=== PATIENT | female | born 1945 | race Caucasian/White ===

== ENCOUNTER 2019-06-21 15:53 | Inpatient (IN) | payer MEDICARE, OTHER ==
[~2019-06-21] VITALS: Ht 165.1 cm; Wt 61.2 kg
[2019-06-21 16:23] LABS: BASOPHILS % (AUTO) 0.4 % (0.0-2.0); EOSINOPHILS % (AUTO) 0.8 % (0.0-6.0); HEMATOCRIT 40 % (33-45); LYMPHOCYTES # (AUTO) 0.6 /CMM (0.8-4.8); LYMPHOCYTES % (AUTO) 6.7 % (20.0-44.0); MEAN CORPUSCULAR HGB CONC 33 g/dl (31.0-36.0); MEAN CORPUSCULAR VOLUME 86 fL (82-100); MONOCYTES # (AUTO) 1.1 /CMM (0.1-1.30); MONOCYTES % (AUTO) 11.5 % (2.0-12.0); NEUTROPHILS # (AUTO) 7.4 /CMM (1.8-8.9); NEUTROPHILS % (AUTO) 80.6 % (43.0-81.0); PLATELET COUNT (AUTO) 246 /CMM (150-450); RED BLOOD CELL COUNT(AUTO) 4.67 MIL/uL (4.0-5.2); WHITE BLOOD COUNT (AUTO) 9.2 K/uL (4.3-11.0)
--- NOTE | 2019-06-21 16:24 | NUR ---
DR MATUTE AT BEDSIDE
[2019-06-21] MEDS ORDERED: ONDANSETRON HCL/PF 4 MG/2 ML VIAL ONE ×2 (16:28→19:35)
[2019-06-21] MEDS ORDERED: ONDANSETRON HCL/PF 4 MG/2 ML VIAL IVP ONE (16:30)
[2019-06-21] MEDS ORDERED: IV NS 0.9% 500 ML BAG IV ONE (16:30)
[2019-06-21 16:32] LABS: CALCIUM, SERUM 9.1 mg/dL (8.5-10.1); CARBON DIOXIDE 24 mmol/L (21-32); CHLORIDE 103 mmol/L (98-107); CREATININE 1.1 mg/dL (0.6-1.3); GLUCOSE 111 mg/dL (74-106); POTASSIUM 4.2 mmol/L (3.5-5.1); SODIUM SERUM 135 mmol/L (136-145); UREA NITROGEN, BLOOD 33 mg/dL (7-18)
[2019-06-21 16:39] LABS: ALANINE AMINOTRANSFERASE 17 U/L (12-78); ALBUMIN 3.5 g/dL (3.4-5.0); ALKALINE PHOSPHATASE 66 U/L (46-116); ASPARTATE AMINOTRANSFERASE 15 U/L (15-37); BILIRUBIN,DIRECT 0.1 mg/dL (0.0-0.2); BILIRUBIN,TOTAL 0.5 mg/dL (0.2-1.0); LIPASE 128 U/L (73-393); TOTAL PROTEIN, SERUM 7.8 g/dL (6.4-8.2)
--- NOTE | 2019-06-21 16:46 | NUR ---
JOSE FROM SNF FOR NAUSEA, VOMITING AND DIARRHEA. TO ER BED 4, HOOKED TO MONITOR, CHANGED TO HOSP [facility], AWAITING MD KENNEDY.
[2019-06-21] MEDS ORDERED: TEMA15CA PO (16:54)
[2019-06-21] MEDS ORDERED: LORA1TAB PO (16:54)
[2019-06-21] MEDS ORDERED: ALBU8.5H8 IH (16:54)
[2019-06-21] MEDS ORDERED: OLAN10TA3 PO (16:54)
[2019-06-21] MEDS ORDERED: MELA3TAB63 PO (16:54)
[2019-06-21] MEDS ORDERED: HALO5TAB PO (16:54)
[2019-06-21] MEDS ORDERED: IBUP-1955 PO (16:54)
[2019-06-21] MEDS ORDERED: FERR325T23 PO (16:54)
[2019-06-21] MEDS ORDERED: PANT40TA2 PO (16:54)
[2019-06-21] MEDS ORDERED: MAGN400O6 PO (16:54)
[2019-06-21] MEDS ORDERED: CALC-7 PO (16:54)
[2019-06-21] MEDS ORDERED: MIRT7.5T10 PO (16:54)
[2019-06-21] MEDS ORDERED: IOHEXOL-300 100 ML VIAL IV ONE (17:08)
[2019-06-21] MEDS ORDERED: IV NS 0.9% 250 ML IV ONE (17:08)
[2019-06-21] MEDS ORDERED: CT SWABBABLE VALVE TRANS SET 1 EA INFUS.SET MC ONE (17:08)
--- NOTE | 2019-06-21 18:16 | NUR ---
URINE SAMPLE COLLECTED VIA STRAIGHT CATHETER. SENT SAMPLE TO LAB
[2019-06-21 18:29] LABS: APPEARANCE,URINE Clear (CLEAR); BILIRUBIN,URINE Negative (NEGATIVE); BLOOD, URINE Negative Ery/uL (NEGATIVE); COLOR,URINE Yellow (YELLOW); KETONES,URINE Trace (NEGATIVE); LEUKOCYTE ESTERASE ,URINE Trace (NEGATIVE); NITRITE, URINE Positive (NEGATIVE); PH,URINE 5.5 (5.0-8.0); PROTEIN,URINE Negative (NEGATIVE); UGLUCOSE Negative (NEGATIVE); UROBILINOGEN,URINE 0.2 EU/dL (0.2)
[2019-06-21 18:42] LABS: SQUAMOUS EPITHELIAL CELL,UR Many /HPF (None Seen)
[2019-06-21 18:43] LABS: BACTERIA,URINE Many /HPF (None Seen); RBC,URINE 0-2 /HPF (0-2)
[2019-06-21] MEDS ORDERED: IV NS 0.9% 1,000 ML BAG IV ONE (19:00)
[2019-06-21] MEDS ORDERED: HYDROMORPHONE INJ 0.5 MG/0.5 ML SYRINGE IV ONE (19:00)
[2019-06-21] MEDS ORDERED: HYDROMORPHONE 1 MG/1 ML DISP.SYRIN ONE (19:27)
--- NOTE | 2019-06-21 19:33 | NUR ---
PATIENT NOTED W VOMITING. MADE MD AWARE. RECEIVED VERBAL ORDER OF ZOFRAN 4MG IV. CARRIED OUT.
[2019-06-21] MEDS ORDERED: ONDANSETRON HCL/PF - ER 4 MG/2 ML VIAL IV ONE (20:00)
--- NOTE | 2019-06-21 20:15 | NUR ---
waiting for rn sup to assign bed
[2019-06-21] MEDS ORDERED: IV D5/0.45 NACL 1,000 ML IV ONE (20:30)
[2019-06-21] MEDS ORDERED: ONDANSETRON HCL/PF 4 MG/2 ML VIAL IVP PRN (21:00)
[2019-06-21] MEDS ORDERED: MORPHINE SULFATE INJ 2 MG/ML DISP.SYRIN IV PRN (21:00)
[2019-06-21] MEDS ORDERED: TEMAZEPAM 15 MG CAPSULE PO PRN (21:00)
[2019-06-21] MEDS ORDERED: ALBUTEROL FS 2.5 MG/0.5 ML VIAL.NEB NEB PRN (21:00)
--- NOTE | 2019-06-21 21:42 | NUR ---
REPORT GIVEN TO SHREYA ZAVALA.
[2019-06-21 21:50] VITALS: BP 114/65
[2019-06-21] MEDS: HALOPERIDOL 5 MG TABLET PO SCH (21:50)
--- NOTE | 2019-06-21 21:50 | NUR ---
MS RN NOTE PT ARRIVED TO FLOOR VIA GURNEY ACCOMPANIED BY ER STAFF. RECEIVED PT IN STABLE CONDITION. A/O X1. PT CURRENTLY DROWSY, AND SLEEPY, NEEDED TO REPEAT QUESTIONS BEFORE SHE CAN ANSWER. NO SIGNS OF SOB OR DISTRESS, NO INDICATION OF PAIN. NO N/V NOTED. IV IN L AC #[address] S/L. ALL CURRENT NEEDS ATTENDED TO. BED LOW, LOCKED, UPPER RAILS UP, AND CALL LIGHT WITHIN REACH. PT BODY ASSESSED, AND BELONGINGS ACCOUNTED AND SIGNED FOR. WILL CONT. TO MONITOR.
[2019-06-21] MEDS: MIRTAZAPINE 15 MG TABLET PO SCH (22:00)
[2019-06-21] MEDS ORDERED: LEVOFLOXACIN 500 MG /D5W 100ML 500 MG in PREMIX 1 EA IV ONE (22:00)
[2019-06-21] MEDS: IV D5/0.45 NACL 1,000 ML IV PRN (22:22)
[2019-06-21] MEDS ORDERED: LEVOFLOXACIN 250 MG /D5W 50 ML 0 ML IV ONE (22:24)
[2019-06-21] MEDS ORDERED: LEVOFLOXACIN 500 MG /D5W 100ML 100 ML IV ONE (22:28)
[2019-06-22 05:45] VITALS: BP 114/65
--- NOTE | 2019-06-22 06:24 | NUR ---
MS RN NOTE PT REMAINS IN STABLE CONDITION. A/O X1. PT CURRENTLY ASLEEP. NO SIGNS OF SOB OR DISTRESS, NO INDICATION OF PAIN. NO N/V NOTED. IV IN L AC #[address] WITH IVF INFUSING, TOLERATING WELL. ALL CURRENT NEEDS ATTENDED TO. BED LOW, LOCKED, UPPER RAILS UP, AND CALL LIGHT WITHIN REACH AND ENDORSE TO NEXT SHIFT FOR RAJAT.
[2019-06-22 07:01] LABS: BASOPHILS % (AUTO) 0.1 % (0.0-2.0); EOSINOPHILS % (AUTO) 1.6 % (0.0-6.0); HEMATOCRIT 33 % (33-45); HEMOGLOBIN 10.8 g/dL (11.5-14.8); LYMPHOCYTES # (AUTO) 1.4 /CMM (0.8-4.8); LYMPHOCYTES % (AUTO) 16.1 % (20.0-44.0); MEAN CORPUSCULAR HGB CONC 32 g/dl (31.0-36.0); MEAN CORPUSCULAR VOLUME 86 fL (82-100); MONOCYTES # (AUTO) 0.9 /CMM (0.1-1.30); MONOCYTES % (AUTO) 10.3 % (2.0-12.0); NEUTROPHILS # (AUTO) 6.3 /CMM (1.8-8.9); NEUTROPHILS % (AUTO) 71.9 % (43.0-81.0); PLATELET COUNT (AUTO) 209 /CMM (150-450); RED BLOOD CELL COUNT(AUTO) 3.86 MIL/uL (4.0-5.2); WHITE BLOOD COUNT (AUTO) 8.7 K/uL (4.3-11.0)
[2019-06-22 07:18] LABS: ALBUMIN 2.5 g/dL (3.4-5.0); BILIRUBIN,TOTAL 0.5 mg/dL (0.2-1.0); CALCIUM, SERUM 7.8 mg/dL (8.5-10.1); MAGNESIUM 1.6 mg/dL (1.8-2.4); PHOSPHORUS 2.4 mg/dL (2.5-4.9); POTASSIUM 4.5 mmol/L (3.5-5.1); TOTAL PROTEIN, SERUM 6.1 g/dL (6.4-8.2)
--- NOTE | 2019-06-22 07:20 | NUR ---
RN OPENING NOTE PT WAS RECEIVED IN BED AT LOWEST AND LOCKED POSITION WITH SIDE RAILS UP X2, A/O X1-2 BREATHING EVEN AND UNLABORED ON RA, ON BEDREST SKIN INTACT, IV IS PATENT AND INTACT, NOTED THAT PT IS NPO AWAITING GI CONSULT, SAFETY PRECAUTIONS IN PLACE, CALL LIGHT IN REACH, WILL MONITOR ACCORDINGLY
[2019-06-22 07:24] LABS: THYROID STIMULATING HORMONE 1.323 uIU/mL (0.358-3.74)
[2019-06-22 08:07] VITALS: BP 122/74
[2019-06-22] MEDS: HALOPERIDOL 5 MG TABLET PO SCH ×4 (08:15→21:00)
[2019-06-22] MEDS: OLANZAPINE 10 MG TABLET PO SCH ×3 (08:16→16:10)
--- NOTE | 2019-06-22 08:25 | NUR ---
RN NOTE PT PULLED OUT IV AT THIS TIME AND AT RISK FOR FALLS DUE HER TRYING TO GET OUT OF BED, SLEEVE IRONER JINA MADE AWARE REQUESTED SITTER AT THIS TIME. WILL MONITOR ACCORDINGLY
--- NOTE | 2019-06-22 09:23 | NUR ---
RN NOTE NEW IV INSERTED IN RIGHT HAND GAUGE 22, SITTER AT BEDSIDE, WILL CONTINUE TO MONITOR
[2019-06-22] MEDS: Magnesium 1GM/D5W 100ML PREMIX 100 ML IV SCH ×2 (11:21→12:14)
[2019-06-22] MEDS: HEPARIN SODIUM, PORCINE 5000 UNITS/1 ML VIAL SQ SCH ×2 (12:15→23:42)
[2019-06-22] MEDS: LORAZEPAM INJ 2 MG/ML VIAL IV PRN (12:19)
--- NOTE | 2019-06-22 15:00 | NUR ---
RN NOTE PHARMACY INFORMED THAT PT IS NPO, THEY WILL CHANGE DOSE FROM PO TO IV
[2019-06-22] MEDS ORDERED: K PHOS NEUTRAL 250 MG TABLET PO ONE (15:30)
[2019-06-22 16:00] VITALS: BP 116/64
[2019-06-22] MEDS ORDERED: Sodium Phosphate 15 MMOL in IV D5W 250 ML IV ONE (16:00)
[2019-06-22] MEDS: IV D5/0.45 NACL 1,000 ML IV PRN (16:36)
--- NOTE | 2019-06-22 16:45 | NUR ---
RN NOTE PHARMACY CALLED REGARDING IV PHOSPHORUS, INFORMED THAT IT IS ON ITS WAY, WILL AWAIT FOR MED TO BE BROUGHT UP
[2019-06-22] MEDS: PANTOPRAZOLE 40 MG VIAL IV SCH (17:12)
--- NOTE | 2019-06-22 17:26 | NUR ---
RN NOTE PHOSPHORUS BROUGHT UP AT THIS TIME, WILL ADMIN
[2019-06-22 17:40] LABS: IRON, SERUM 40 ug/dl (50-175); TOTAL IRON BINDING CAPACITY 243 ug/dl (250-450)
[2019-06-22 17:56] LABS: FERRITIN 94 ng/mL (8-388)
--- NOTE | 2019-06-22 18:22 | NUR ---
RN CLOSING NOTE PT IN BED AT LOWEST AND LOCKED POSITION WITH SIDE RAILS UP X2, A/O X1-2 BREATHING EVEN AND UNLABORED ON RA, IV IS PATENT AND INTACT, SITTER AT BEDSIDE, CURRENTLY NPO, SAFETY PRECAUTIONS IN PLACE, CALL LIGHT IN REACH, ALL NEEDS ATTENDED TO THROUGHOUT SHIFT, WILL ENDORSE TO NIGHT RN FOR RAJAT.
--- NOTE | 2019-06-22 19:53 | NUR ---
RN NOTES RECEIVED PATIENT AWAKE IN BED CALM RESTING COMFORTABLY, IV ACCESS INTACT AND PATENT, SITTER AT BEDSIDE, SAFETY MEASURES INPLACE, ASPIRATION PRECAUTION MAINTAINED, CALL LIGHT WITHIN EASY REACH, NO SIGNS OF DISTRESS, WILL CONTINUE TO MONITOR ACCORDINGLY.
[2019-06-22] MEDS: MIRTAZAPINE 15 MG TABLET PO SCH (22:00)
[2019-06-22] MEDS: LEVOFLOXACIN 250 MG /D5W 50 ML 250 MG in PREMIX 1 EA IV SCH (22:40)
--- NOTE | 2019-06-23 00:49 | NUR ---
RN NOTES NEW IV INSERTED IN LEFT FOREARM GAUGE 22, SITTER AT BEDSIDE, WILL CONTINUE TO MONITOR ACCORDINGLY.
[2019-06-23] MEDS: LORAZEPAM INJ 2 MG/ML VIAL IV PRN (01:25)
--- NOTE | 2019-06-23 01:25 | NUR ---
RN NOTES ATIVAN 0.5 MG IV GIVEN PER MD ORDER FOR AGITATION, AND RESTLESSNESS, SITTER AT BEDSIDE. SAFETY MEASURES INPLACE.
[2019-06-23 06:34] LABS: BASOPHILS % (AUTO) 0.2 % (0.0-2.0); HEMATOCRIT 34 % (33-45); HEMOGLOBIN 11.2 g/dL (11.5-14.8); LYMPHOCYTES # (AUTO) 1.5 /CMM (0.8-4.8); LYMPHOCYTES % (AUTO) 19.3 % (20.0-44.0); MEAN CORPUSCULAR HGB CONC 33 g/dl (31.0-36.0); MEAN CORPUSCULAR VOLUME 86 fL (82-100); MONOCYTES # (AUTO) 0.6 /CMM (0.1-1.30); MONOCYTES % (AUTO) 8.4 % (2.0-12.0); NEUTROPHILS # (AUTO) 5.3 /CMM (1.8-8.9); NEUTROPHILS % (AUTO) 69.1 % (43.0-81.0); PLATELET COUNT (AUTO) 219 /CMM (150-450); WHITE BLOOD COUNT (AUTO) 7.6 K/uL (4.3-11.0)
[2019-06-23 07:05] LABS: CALCIUM, SERUM 8.6 mg/dL (8.5-10.1); CREATININE 0.9 mg/dL (0.6-1.3); MAGNESIUM 2.2 mg/dL (1.8-2.4); PHOSPHORUS 3.1 mg/dL (2.5-4.9); POTASSIUM 3.8 mmol/L (3.5-5.1)
--- NOTE | 2019-06-23 07:08 | NUR ---
RN NOTES ALL NEEDS ATTENDED AND MET. BILATERAL SOFT WRIST RESTRAINTS ON, MONITORED FOR ADEQUATE CIRCULATION AND SKIN INTEGRITY, REPOSITIONED FOR COMFORT, SITTER AT BEDSIDE, SAFETY MEASURES IN PLACE,ENDORSED TO AM NURSE FOR CONTINUITY OF CARE.
[2019-06-23 08:00] VITALS: BP 152/78
[2019-06-23] MEDS: OLANZAPINE 10 MG TABLET PO SCH ×3 (09:00→16:14)
[2019-06-23] MEDS: HALOPERIDOL 5 MG TABLET PO SCH ×4 (09:00→20:51)
[2019-06-23] MEDS: HEPARIN SODIUM, PORCINE 5000 UNITS/1 ML VIAL SQ SCH ×2 (09:16→20:52)
[2019-06-23] MEDS ORDERED: DIATR MEGLU/DIATRIZOATE SODIUM 120 ML BOTTLE (GASTROGRAPHIN) ONE (09:36)
[2019-06-23] MEDS ORDERED: BARIUM SULFATE 98% 135 ML SUSP.RECON PO ONE (10:03)
--- NOTE | 2019-06-23 12:00 | NUR ---
RECEIVED ORDER FROM PRITI LUCIO , EGD TOMORROW.
--- NOTE | 2019-06-23 12:20 | NUR ---
PATIENT TOLERATED PUREE DIET WELL, NO SWALLOW PROBLEMS WERE NOTED.
[2019-06-23 16:00] VITALS: BP 140/84
--- NOTE | 2019-06-23 16:01 | NUR ---
SPOKE WITH PATIENT'S CONSERVATIVE MICHAEL PLUNKETT TO GET A CONSENT FOR EGD. CONSERVATOR CANNOT SIGH A CONSENT FOR INVASIVE PROCEDURES. SHE WILL SEND A FORM THAT HAS TO BE SIGHED BY MEDICAL DOCTOR AND EXTRUDER OPERATOR MULTIPLE AND THAN SEND BACK TO HER
--- NOTE | 2019-06-23 16:11 | NUR ---
RECEIVED THE FORM( PLACED IN THE CHART). CHARGE NURSE INFORMED. WILL INFORM
[2019-06-23] MEDS: PANTOPRAZOLE 40 MG VIAL IV SCH (16:14)
--- NOTE | 2019-06-23 17:00 | NUR ---
PER ISAURO EDUCATION ADMINISTRATOR NO EGD TOMORROW.
--- NOTE | 2019-06-23 18:58 | NUR ---
PATIENT IN BED.A/OX1, REMAINS CONFUSED. VS ARE STABLE AND PATIENT ON ROOM AIR. BILATERAL SOFT WRIST RESTRAINTS ON, MONITORED FOR ADEQUATE CIRCULATION AND SKIN INTEGRITY, SITTER AT BEDSIDE, SAFETY MEASURES IN PLACE,ENDORSED TO NEXT SHIFT NURSE FOR CONTINUITY OF CARE.
--- NOTE | 2019-06-23 19:20 | NUR ---
rn notes/assessment: pt in bed, awake, a/o x1. sitter at bed side. received with bilateral soft wrist restraint. pt trying to hit staff and throw food and liquids. iv noted on left fa g 22 patent and flushing well, infusing with d51/2 ns at 80ml/hr. no s/s of iv infiltration noted. restraint protocol followed. pt able to move and wiggle arm and hands. with good capillary refill noted. pedal pulses intact. no s/s of impediment in circulation noted. ble offloaded on pillows. safety precautions for fall engaged, call light in reach, will continue monitoring pt.
[2019-06-23 20:00] VITALS: BP 156/78
[2019-06-23 20:03] VITALS: BP 156/56
[2019-06-23] MEDS: LEVOFLOXACIN 250 MG /D5W 50 ML 250 MG in PREMIX 1 EA IV SCH (21:02)
[2019-06-23] MEDS: IV D5/0.45 NACL 1,000 ML IV PRN (22:21)
[2019-06-23] MEDS: MIRTAZAPINE 15 MG TABLET PO SCH (22:21)
[2019-06-23 22:23] VITALS: BP 112/53
--- NOTE | 2019-06-24 06:12 | NUR ---
RN CLOSING NOTES: PT REMAINS ON ASPIRATION PRECAUTIONS. BILATERAL SOFT WRIST RESTRAINT IN PLACED, BILATERAL RADIAL PULSES INTACT, WITH GOOD CAPILLARY REFILL NOTED, PT ABLE TO MOVE AND WIGGLE ARMS. NO S/S OF IMPEDIMENT IN CIRCULATION NOTED. BLE OFFLOADED ON PILLOWS. SAFETY PRECAUTIONS FOR FALL REMAINS ENGAGED, CALL LIGHT IN REACH, ENDORSE TO HUGH RN FOR CONTINUITY OF CARE.
[2019-06-24 07:44] LABS: BASOPHILS % (AUTO) 0.3 % (0.0-2.0); EOSINOPHILS % (AUTO) 3.5 % (0.0-6.0); HEMATOCRIT 35 % (33-45); HEMOGLOBIN 11.1 g/dL (11.5-14.8); LYMPHOCYTES # (AUTO) 1.8 /CMM (0.8-4.8); LYMPHOCYTES % (AUTO) 27.6 % (20.0-44.0); MEAN CORPUSCULAR HGB CONC 32 g/dl (31.0-36.0); MEAN CORPUSCULAR VOLUME 86 fL (82-100); MONOCYTES # (AUTO) 0.6 /CMM (0.1-1.30); MONOCYTES % (AUTO) 9.3 % (2.0-12.0); NEUTROPHILS # (AUTO) 3.8 /CMM (1.8-8.9); NEUTROPHILS % (AUTO) 59.3 % (43.0-81.0); PLATELET COUNT (AUTO) 219 /CMM (150-450); RED BLOOD CELL COUNT(AUTO) 4.02 MIL/uL (4.0-5.2); WHITE BLOOD COUNT (AUTO) 6.4 K/uL (4.3-11.0)
[2019-06-24 07:56] LABS: CALCIUM, SERUM 8.5 mg/dL (8.5-10.1); CREATININE 0.9 mg/dL (0.6-1.3); MAGNESIUM 1.9 mg/dL (1.8-2.4); PHOSPHORUS 3.5 mg/dL (2.5-4.9); POTASSIUM 3.7 mmol/L (3.5-5.1)
[2019-06-24 08:00] VITALS: BP 110/57
[2019-06-24] MEDS: OLANZAPINE 10 MG TABLET PO SCH ×3 (09:03→16:53)
[2019-06-24] MEDS: HALOPERIDOL 5 MG TABLET PO SCH ×4 (09:03→21:00)
[2019-06-24] MEDS: HEPARIN SODIUM, PORCINE 5000 UNITS/1 ML VIAL SQ SCH ×2 (09:05→20:49)
--- NOTE | 2019-06-24 10:13 | NUR ---
WOUND CARE CONSULT: PT PRESENTS WITH INTACT SKIN. PT IS INCONTINENT. RECOMMENDATIONS MADE FOR SKIN PROTECTION. DISCUSSED WITH NURSING STAFF. WILL SEE PRN. CURRENT HANSEL SCORE IS 13.
[2019-06-24] MEDS ORDERED: Z GUARD REMEDY 2 OZ OINT TP SCH (10:30)
[2019-06-24] MEDS ORDERED: Z GUARD REMEDY 2 OZ OINT TP PRN (10:30)
[2019-06-24 16:00] VITALS: BP 117/65
[2019-06-24] MEDS: PANTOPRAZOLE 40 MG VIAL IV SCH (16:54)
--- NOTE | 2019-06-24 18:30 | NUR ---
PATIENT REMAIN STABLE ON ROOM AIR, SITTER AT BEDSIDE. PATIENT COOPERATIVE AND ALERT /ORIENTED X2. ALL NEEDS ATTENDED. PATIENT ON SOFT DIET TOLERATED WELL. PATIENT AMBULATORY WITH ASSISTANCE. IV LINE REMAINS INTACT AND PATENT H/L. SAFETY PRECAUTIONS IN PLACE. CALL LIGHT WITHIN REACH. WILL ENDORSE TO NEXT SHIFT FOR RAJAT.
--- NOTE | 2019-06-24 19:00 | NUR ---
RN MS NOTES RECEIVED PATIENT IN BED AWAKE ALERT AND ORIENTED X1, ABLE TO MAKE SIMPLE NEEDS KNOWN NOTED, FORGETFUL, RESPIRATIONS EVEN AND UNLABORED WITH EQUAL RISE AND FALL OF CHEST, DENIES ANY PAIN OR DISCOMFORT AT THIS TIME IV SITE TO RIGHT WRIST #20G INTACT AND PATENT, NO REDNESS, NO INFILTRATION PRESENT, ORIENTED TO STAFF AND CALL LIGHT AND KEPT WITHIN REACH, SAFETY PRECAUTIONS IN PLACE, LOW BED AND LOCKED, BED ALARM IN PLACE, SITTER AT BEDSIDE, ALL NEEDS ATTENDED AT THIS TIME DISCUSSED PLAN OF CARE, AWAITING TO BE DISCHARGED. AT THIS TIME REMAINS COMFORTABLE.
[2019-06-24 20:00] VITALS: BP 98/54
--- NOTE | 2019-06-24 20:30 | NUR ---
RN MS NOTES RECEIVED CALL FROM FROM [facility], "PATIENT WILL BE ACCEPTED TO [facility] AND BED IS AVAILABLE AND TRANSPORTATION WILL BE PROVIDED WITHIN 30-40 MINS". CALL BACK NUMBER [phone]
--- NOTE | 2019-06-24 21:00 | NUR ---
RN MS NOTES CALLED AND SPOKE TO EAGLE ZAVALA RECEIVING NURSE AT [facility] TO GIVE REPORT. [phone] REPORT GIVEN TO EAGEL ZAVALA PATIENT WILL BE GOING TO UNIT TWO. TRANSPORTATION AT BEDSIDE, [facility], DISCHARGE PAPERWORK GIVEN TO AMBULANCE STAFF. IV SITE REMOVED, ID BAND REMOVED, NO PERSONAL BELONGINGS NOTED WITH PATIENT AT THIS TIME.
--- NOTE | 2019-06-24 21:25 | NUR ---
RN MS CLOSING NOTES PATIENT LEFT IN STABLE CONDITION WITH [facility] AMBULANCE STAFF. PATIENT REFUSED HALDOL SCHEDULED.
== END 2019-06-24 21:25 | DRG 391 ==
LOC: EDBD 15:53 → ER 15:59 → MED 21:19
PROVIDERS: ADMIT Nurse Practitioner Acute Care; ATTEND Nurse Practitioner Acute Care
DX: K22.0 Achalasia of cardia (principal); E43 Unspecified severe protein-calorie malnutrition; E87.1 Hypo-osmolality and hyponatremia; N39.0 Urinary tract infection, site not specified; D68.59 Other primary thrombophilia; F20.0 Paranoid schizophrenia; K22.8 Other specified diseases of esophagus; E86.9 Volume depletion, unspecified; J44.9 Chronic obstructive pulmonary disease, unspecified; E83.42 Hypomagnesemia; F03.90 Unspecified dementia, unspecified severity, without behavioral disturbance, psychotic disturbance, mood disturbance, and anxiety; B96.20 Unspecified Escherichia coli [E. coli] as the cause of diseases classified elsewhere; G89.29 Other chronic pain; R73.9 Hyperglycemia, unspecified; Z68.22 Body mass index [BMI] 22.0-22.9, adult; K44.9 Diaphragmatic hernia without obstruction or gangrene; K22.5 Diverticulum of esophagus, acquired; F29 Unspecified psychosis not due to a substance or known physiological condition; K22.2 Esophageal obstruction
CPT/HCPCS: 36415; 72128-TC; 74230-TC; 80048-TC; 80053-TC; 80061-TC; 80076-TC; 81000-TC; 82728-TC; 83540-TC; 83690-TC; 83735-TC; 84100-TC; 84443-TC; 84484-TC; 85025-TC; 87081-TC; 87086-TC; 87186-TC; A4216; A9563; C9113; G0378; J1170; J1644; J1956; J2060; J2405; J3475; J3490; J7030; J7040; J7050; J7060; Q9963; Q9967

== ENCOUNTER 2019-07-08 21:16 | Inpatient (IN) | payer MEDICARE, OTHER ==
[~2019-07-08] VITALS: Ht 157.5 cm; Wt 62.6 kg
[~2019-07-08 21:16] MED LIST: ALBU8.5H8 IH; CALC-7 PO; FERR325T23 PO; HALO5TAB PO; IBUP-1955 PO; LORA1TAB PO; MAGN400O6 PO; MELA3TAB63 PO; MIRT7.5T10 PO; OLAN10TA3 PO; PANT40TA2 PO; TEMA15CA PO
--- NOTE | 2019-07-08 21:31 | NUR ---
URINE COLLECTED AND SENT TO LAB
[2019-07-08] MEDS ORDERED: ONDANSETRON HCL/PF 4 MG/2 ML VIAL ONE (21:47)
[2019-07-08 21:49] LABS: BASOPHILS % (AUTO) 0.1 % (0.0-2.0); EOSINOPHILS % (AUTO) 0.1 % (0.0-6.0); HEMATOCRIT 41 % (33-45); HEMOGLOBIN 13.2 g/dL (11.5-14.8); LYMPHOCYTES # (AUTO) 0.3 /CMM (0.8-4.8); LYMPHOCYTES % (AUTO) 1.8 % (20.0-44.0); MEAN CORPUSCULAR HGB CONC 32 g/dl (31.0-36.0); MEAN CORPUSCULAR VOLUME 86 fL (82-100); MONOCYTES # (AUTO) 0.7 /CMM (0.1-1.30); MONOCYTES % (AUTO) 3.8 % (2.0-12.0); NEUTROPHILS # (AUTO) 16.2 /CMM (1.8-8.9); NEUTROPHILS % (AUTO) 94.2 % (43.0-81.0); PLATELET COUNT (AUTO) 283 /CMM (150-450); RED BLOOD CELL COUNT(AUTO) 4.78 MIL/uL (4.0-5.2); WHITE BLOOD COUNT (AUTO) 17.2 K/uL (4.3-11.0)
--- NOTE | 2019-07-08 21:55 | NUR ---
[id number] FROM [facility] C/O L SIDE ABDOMINAL PAIN X5 HRS +VOMITTING. PT AAOX3, VSS. DENIES CP, SOB, DIZZINESS @ THIS TIME. PT SEEN & EVAL'D BY DR. SAWANT. MEDICATED ORDERED, PT ALAN WELL. WILL CONT TO MONITOR.
[2019-07-08 21:59] LABS: APPEARANCE,URINE Clear (CLEAR); BILIRUBIN,URINE LARGE (NEGATIVE); BLOOD, URINE Negative Ery/uL (NEGATIVE); KETONES,URINE 15 (NEGATIVE); LEUKOCYTE ESTERASE ,URINE Negative (NEGATIVE); NITRITE, URINE Negative (NEGATIVE); PROTEIN,URINE 30 mg/dl (NEGATIVE); UGLUCOSE Negative (NEGATIVE)
[2019-07-08] MEDS ORDERED: ONDANSETRON HCL/PF 4 MG/2 ML VIAL IVP ONE (22:00)
[2019-07-08 22:03] LABS: COLOR,URINE AMBER (YELLOW)
[2019-07-08 22:17] LABS: CALCIUM, SERUM 9.9 mg/dL (8.5-10.1); CARBON DIOXIDE 23 mmol/L (21-32); CHLORIDE 104 mmol/L (98-107); CREATININE 1.3 mg/dL (0.6-1.3); GLUCOSE 117 mg/dL (74-106); POTASSIUM 4.3 mmol/L (3.5-5.1); SODIUM SERUM 140 mmol/L (136-145); UREA NITROGEN, BLOOD 36 mg/dL (7-18)
[2019-07-08 22:22] LABS: ALANINE AMINOTRANSFERASE 25 U/L (12-78); ALBUMIN 3.7 g/dL (3.4-5.0); ALKALINE PHOSPHATASE 56 U/L (46-116); ASPARTATE AMINOTRANSFERASE 19 U/L (15-37); BILIRUBIN,DIRECT 0.1 mg/dL (0.0-0.2); BILIRUBIN,TOTAL 0.4 mg/dL (0.2-1.0); LIPASE 103 U/L (73-393); TOTAL PROTEIN, SERUM 7.8 g/dL (6.4-8.2)
[2019-07-08 22:23] LABS: BACTERIA,URINE 1+ /HPF (None Seen); CALCIUM OXALATE CRYSTALS,UR Moderate /HPF (None Seen); HYALINE CASTS, URINE Few /LPF (None Seen); RBC,URINE 0-2 /HPF (0-2); SQUAMOUS EPITHELIAL CELL,UR Few /HPF (None Seen); WBC,URINE 0-2 /HPF (0-3)
[2019-07-08] MEDS ORDERED: IV NS 0.9% 1,000 ML BAG IV ONE (22:30)
[2019-07-08 23:43] LABS: BAND % (MANUAL) 13 % (0.0-5.0); LYMPHOCYTES % (MANUAL) 0 % (16-48); MONOCYTES % (MANUAL) 2 % (0-11.0); NEUTROPHILS % (MANUAL) 85 (42-76)
--- NOTE | 2019-07-09 01:05 | NUR ---
PT SLEEPING COMFORTABLY IN [facility]. NO SIGNS OF DISTRESS NOTED. PT VITAL SIGNS STABLE. WILL CONT TO MONITOR PT.
[2019-07-09 04:36] LABS: BASOPHILS # (AUTO) 0.1 /CMM (0.0-0.2); BASOPHILS % (AUTO) 0.3 % (0.0-2.0); HEMATOCRIT 38 % (33-45); LYMPHOCYTES # (AUTO) 0.9 /CMM (0.8-4.8); LYMPHOCYTES % (AUTO) 4.2 % (20.0-44.0); MEAN CORPUSCULAR HGB CONC 32 g/dl (31.0-36.0); MEAN CORPUSCULAR VOLUME 87 fL (82-100); MONOCYTES # (AUTO) 2.2 /CMM (0.1-1.30); MONOCYTES % (AUTO) 10.4 % (2.0-12.0); NEUTROPHILS % (AUTO) 85.1 % (43.0-81.0); PLATELET COUNT (AUTO) 243 /CMM (150-450); RED BLOOD CELL COUNT(AUTO) 4.33 MIL/uL (4.0-5.2); WHITE BLOOD COUNT (AUTO) 21.2 K/uL (4.3-11.0)
[2019-07-09] MEDS ORDERED: MORPHINE SULFATE INJ 2 MG/ML DISP.SYRIN IV PRN (05:30)
[2019-07-09] MEDS ORDERED: ACETAMINOPHEN 325 MG TABLET PO PRN (05:30)
[2019-07-09] MEDS ORDERED: Z GUARD REMEDY 2 OZ OINT TP PRN (05:30)
[2019-07-09] MEDS ORDERED: MAGNESIUM HYDROXIDE 30 ML UDC PO PRN (05:30)
[2019-07-09] MEDS ORDERED: ONDANSETRON HCL/PF 4 MG/2 ML VIAL IVP PRN (05:30)
[2019-07-09] MEDS ORDERED: MAG HYDROX/AL HYDROX/SIMETH 30 ML UDC PO PRN (05:30)
--- NOTE | 2019-07-09 05:30 | NUR ---
WATERY DIARRHEA NOTED. STOOL SAMPLE SENT TO LAB.
--- NOTE | 2019-07-09 06:33 | NUR ---
MS RN ADMITTING NOTES: RECEIVED PATIENT FROM ER VIA GURNEY, ACCOMPANIED BY ER STAFF. REPORT GIVEN BY JOSE. PATIENT ARRIVED IN STABLE CONDITION. NO SOB NOTED, NO S/S OF ACUTE DISTRESS. NO INDICATIONS OF PAIN, NAUSEA AND VOMITING AT THIS TIME. AWAITING FOR ADMITTING ORDERS. MD MADE AWARE OF PATIENT ARRIVAL TO FLOOR. WILL CONTINUE TO MONITOR PATIENT AND ENDORSE FOR RAJAT.
[2019-07-09 06:34] LABS: MAGNESIUM 2.9 mg/dL (1.8-2.4); PHOSPHORUS 4.1 mg/dL (2.5-4.9)
--- NOTE | 2019-07-09 06:45 | NUR ---
MS RN NOTES: VITAL SIGNS TAKEN AT 0630. BP: 102/65. HR:108, O2 SAT:96%. TEMP:98. PATIENT IS A/OX3-4. NO SOB NOTED. NO S/S OF DISTRESS. NO COMPLAINS OF PAIN AT THIS TIME. WILL ENDORSE TO DAY SHIFT NURSE FOR RAJAT.
[2019-07-09] MEDS ORDERED: IV NS 0.9% 1,000 ML IV PRN (07:30)
--- NOTE | 2019-07-09 07:30 | NUR ---
MS RN OPENING NOTES RECEIVED PT IN BED, AWAKE. A/O X4 PER NIGHT NURSE, NEW ADMIT. PT TOLERATING RA AT THIS TIME, WITH NO ACUTE RESPIRATORY DISTRESS NOTED. PT DENIES ANY PAIN OR DISCOMFORT AT THIS TIME. PT DENIES ANY QUESTIONS OR CONCERN AT THIS TIME. SKIN ASSESSED, SKIN INTACT. PIV TO LAC G20, FLUSHED WITH NS, INTACT AND OPERATIONAL. PT KEPT COMFORTABLE. CALL LIGHT KEPT WITHIN REACH. PT'S BED IN LOWEST, LOCKED POSITION WITH SRX3. WILL CONTINUE PLAN OF CARE.
[2019-07-09] MEDS ORDERED: OMEP40CA13 PO (07:47)
[2019-07-09] MEDS ORDERED: LACT-246 PO (07:47)
[2019-07-09] MEDS ORDERED: CLOZ100T32 PO ×2 (07:47)
[2019-07-09 08:00] VITALS: BP 85/56
[2019-07-09] MEDS: LEVOFLOXACIN (500MG) 500 MG TABLET PO SCH (08:24)
[2019-07-09] MEDS: VANCOMYCIN HCL 125 MG/2.5 ML ORAL.SUSP PO SCH ×3 (08:24→17:14)
[2019-07-09] MEDS: PANTOPRAZOLE 40 MG VIAL IV SCH (08:24)
[2019-07-09 09:21] LABS: OCCULT BLOOD STOOL NEGATIVE (NEGATIVE)
[2019-07-09] MEDS: IV NS 0.9% 1,000 ML IV PRN (10:25)
[2019-07-09] MEDS: METRONIDAZOLE 500 MG TABLET PO SCH ×2 (13:07→20:53)
[2019-07-09 16:00] VITALS: BP 90/50
--- NOTE | 2019-07-09 18:37 | NUR ---
MS RN CLOSING NOTES PT IN BED, AWAKE. A/O X3 WITH EPISODES OF FORGETFULNESS. PT TOLERATING RA AT THIS TIME, WITH NO ACUTE RESPIRATORY DISTRESS NOTED. PT DENIES ANY PAIN OR DISCOMFORT AT THIS TIME. IVF NS AT 75 ML/HR TO LAC G20,INTACT AND FLUID INFUSING WELL. ALL NEEDS AND CARE ATTENDED. PT KEPT COMFORTABLE. CALL LIGHT KEPT WITHIN REACH. PT'S BED IN LOWEST, LOCKED POSITION WITH SRX3. WILL ENDORSE TO INCOMING NIGHT NURSE FOR RAJAT.
--- NOTE | 2019-07-09 19:30 | NUR ---
MS RN NOTES RECEIVED ON BED A/O X2-3,WITH EPISODE OF CONFUSION.IVF OF NS AT 75ML/HR RATE IN PROGRESS VIA IV PUMP ON LEFT AC.ADVISED NOT TO BED LEFT ARM TO PREVENT IV PUMP OF MAKING SOUNDS.ISOLATION PRECAUTION FOR POSSIBLE C-DIFF,PENDING TEST RESULT.ARMIN ABDOMINAL PAIN AT THE MOMENT,NO LOOSE BOWEL MOVEMENT NOTED.FALL PRECAUTION OBSERVED.CALL LIGHT IN REACH,NEEDS ANTICIPATED.
[2019-07-09 20:00] VITALS: BP 94/50
[2019-07-09 20:06] VITALS: BP 94/50
[2019-07-10] MEDS: VANCOMYCIN HCL 125 MG/2.5 ML ORAL.SUSP PO SCH ×5 (00:18→23:30)
[2019-07-10] MEDS: METRONIDAZOLE 500 MG TABLET PO SCH ×3 (05:09→20:06)
--- NOTE | 2019-07-10 05:30 | NUR ---
MS RN NOTES PATIENT REFUSED IVF THIS TIME.
--- NOTE | 2019-07-10 06:26 | NUR ---
MS RN NOTES APPEARS CONFUSED,MEDS COMPLIANT,IVF STILL REFUSED,NO FALLS ,NO INJURY,IN NO ACUTE DISTRESS.WILL ENDORSE TO DAY NURSE FOR RAJAT.
[2019-07-10 06:38] LABS: ALBUMIN 2.9 g/dL (3.4-5.0); BILIRUBIN,TOTAL 0.3 mg/dL (0.2-1.0); CALCIUM, SERUM 8.8 mg/dL (8.5-10.1); MAGNESIUM 2.3 mg/dL (1.8-2.4); PHOSPHORUS 2.9 mg/dL (2.5-4.9); POTASSIUM 4.3 mmol/L (3.5-5.1); TOTAL PROTEIN, SERUM 6.6 g/dL (6.4-8.2)
[2019-07-10 06:45] LABS: BASOPHILS % (AUTO) 0.2 % (0.0-2.0); EOSINOPHILS % (AUTO) 1.5 % (0.0-6.0); HEMATOCRIT 34 % (33-45); HEMOGLOBIN 11.2 g/dL (11.5-14.8); LYMPHOCYTES # (AUTO) 1.3 /CMM (0.8-4.8); LYMPHOCYTES % (AUTO) 12.7 % (20.0-44.0); MEAN CORPUSCULAR HGB CONC 33 g/dl (31.0-36.0); MEAN CORPUSCULAR VOLUME 85 fL (82-100); MONOCYTES # (AUTO) 0.7 /CMM (0.1-1.30); MONOCYTES % (AUTO) 6.4 % (2.0-12.0); NEUTROPHILS % (AUTO) 79.2 % (43.0-81.0); PLATELET COUNT (AUTO) 241 /CMM (150-450); WHITE BLOOD COUNT (AUTO) 10.1 K/uL (4.3-11.0)
[2019-07-10] MEDS: LEVOFLOXACIN (500MG) 500 MG TABLET PO SCH (07:06)
--- NOTE | 2019-07-10 07:50 | NUR ---
MS RN OPENING NOTES RECEIVED PATIENT ALERT AND AWAKE IN BED WATCHING TV. NO SOB. DENIES ANY C/O PAIN NOR DISCOMFORT AT THIS TIME. LAC # 20 INTACT AND PATENT INFUSING NS @ 75ML/HR ALAN WELL. BED IN LOWEST POSITION, LOCKED. BED SIDERAILS UP X2. CALL LIGHT WITHIN REACH.
[2019-07-10 08:00] VITALS: BP 110/66
[2019-07-10] MEDS: PANTOPRAZOLE 40 MG VIAL IV SCH (08:39)
--- NOTE | 2019-07-10 11:30 | NUR ---
MS RN NOTES PATIENT PULLED OUT IV ACCESS. ATTEMPTED TO REINSERT PATIENT REFUSED. SHEILA PRINCE.
[2019-07-10] MEDS ORDERED: PEG 3350/NA SULF,BICARB,CL/KCL 4,000 ML BOTTLE PO ONE (14:00)
--- NOTE | 2019-07-10 15:00 | NUR ---
MS RN NOTES PATIENT STILL REFUSES TO HAVE IV ACCESS DESPITE OF RISKS AND BENEFITS EXPLAINED
[2019-07-10 16:00] VITALS: BP 115/63
--- NOTE | 2019-07-10 16:20 | NUR ---
MS RN NOTES RECEIVED THOMAS FROM PHARMACY, ADMINISTERED
--- NOTE | 2019-07-10 17:25 | NUR ---
MS RN NOTES PATIENT AGREED TO HAVE IV INSERTION AFTER NUMEROUS ATTEMPTS. LEFT AC # 22 INTACT AND PATENT.
--- NOTE | 2019-07-10 19:25 | NUR ---
MS RN CLOSING NOTES ALERT AND ORIENTED X1-2. PATIENT WITH CONFUSION AND FORGETFULNESS. NO SOB. DENIES ANY C/O PAIN NOR DISCOMFORT AT THIS TIME. LAC # 22 INTACT AND PATENT INFUSING NS @ 75ML/HR ALAN WELL. AMBULATORY WITH STEADY GAIT. BRP. BED IN LOWEST POSITION, LOCKED. BED SIDERAILS UP X2. CALL LIGHT WITHIN REACH. IN NO APPARENT DISTRESS.
--- NOTE | 2019-07-10 19:26 | NUR ---
MS RN OPENING NOTES Received patient A/O x1-2, with confusion, awake on bed on RA. No s/sx of discomfort noted at this time. On golytely to help her move bowel but patient refused to take the solution. On fall precautions, bed alarm on. Kept on bed clean, dry and comfortable. Will continue to monitor accordingly.
[2019-07-10 20:00] VITALS: BP 110/55
[2019-07-10] MEDS: IV NS 0.9% 1,000 ML IV PRN (22:23)
[2019-07-11] MEDS: VANCOMYCIN HCL 125 MG/2.5 ML ORAL.SUSP PO SCH ×2 (05:13→12:08)
[2019-07-11] MEDS: METRONIDAZOLE 500 MG TABLET PO SCH ×3 (05:13→20:13)
[2019-07-11] MEDS: LEVOFLOXACIN (500MG) 500 MG TABLET PO SCH (05:13)
--- NOTE | 2019-07-11 06:20 | NUR ---
MS RN CLOSING NOTES Patient asleep on bed, easily awaken. On RA, no SOB/respiratory distress, no s/sx of discomfort noted at this time. All due meds given as ordered, able to take whole pills. No new complaints. All nursing needs attended. Kept on bed clean, dry and comfortable. On fall and aspiration precautions. Call light within easy reach. Bed alarm on. Endorsed to the next shift.
[2019-07-11 08:00] VITALS: BP 110/54
--- NOTE | 2019-07-11 08:00 | NUR ---
MS RN OPENING NOTES Received Patient awake and resting in bed. A/O x 1-2. VS stable with no acute distress. Breathing even and unlabored on room air with no respiratory distress. Denies pain. 22g PIV on LAC clean, intact, patent and flushing well with NS running at 75ml/hr. Safety precautions in place. Bed locked and set to lowest position with side rails x 2 up. All needs rendered at this time. Call light within reach. Will continue to monitor.
[2019-07-11] MEDS: PANTOPRAZOLE 40 MG VIAL IV SCH (08:36)
[2019-07-11] MEDS ORDERED: LEVO500T2 PO (12:57)
[2019-07-11] MEDS ORDERED: METR500T PO (12:57)
[2019-07-11 16:00] VITALS: BP 115/60
--- NOTE | 2019-07-11 18:28 | NUR ---
MS RN NOTES Per Patient, she has suicidal ideations. Her plan for suicide is by pills. Notified Aria BRO.
--- NOTE | 2019-07-11 18:40 | NUR ---
MS RN CLOSING NOTES Patient awake and resting in bed. A/O x 1-2. VS stable with no acute distress. Breathing even and unlabored on room air with no respiratory distress. Denies pain. 22g PIV on LAC clean, intact, patent and flushing well with NS running at 75ml/hr. Safety precautions in place. Bed locked and set to lowest position with side rails x 2 up. All needs rendered at this time. Call light within reach. Will continue to monitor.
--- NOTE | 2019-07-11 19:10 | NUR ---
MS RN OPENING NOTES Received patient A/O x2, awake on bed. On RA, no SOB/respiratory distress noted. No complaints made at this time. Discussed to patient the POC, patient verbalized understanding. Kept on bed clean, dry and comfortable. Call light within easy reach. On fall and aspiration precautions. Will continue to monitor accordingly.
[2019-07-11 20:00] VITALS: BP 111/54
[2019-07-11] MEDS: IV NS 0.9% 1,000 ML IV PRN (20:44)
--- NOTE | 2019-07-11 20:53 | NUR ---
07/11/19 Per hospitalist pt stable for tx back to [facility] [phone] spoke to Gurmeet requesting clinicals to be fax to [phone] faxed confirmation received. Awaiting for bed. Ambulance on will call via [facility] [phone]. Nurse made aware. Addendum: 07/11/19 at 2052 by HARDIK GARCIA CMG Amended: Links added.
--- NOTE | 2019-07-11 23:14 | NUR ---
MS RN NOTES Received a call from [facility], spoke with Gurmeet requesting for new CBC of the patient. Notified charge nurse of the concern. Called back to Gurmeet informing them that concerned will be relayed to the MD discharging the patient. Will endorsed to the morning nurse.
[2019-07-11 23:19] VITALS: BP 111/54
[2019-07-12] MEDS: LEVOFLOXACIN (500MG) 500 MG TABLET PO SCH (05:49)
[2019-07-12] MEDS: METRONIDAZOLE 500 MG TABLET PO SCH (05:49)
--- NOTE | 2019-07-12 06:52 | NUR ---
MS RN CLOSING NOTES Patient on bed, intermittently asleep. Afebrile the whole shift, no complaints of abdominal pain, no diarrhea noted within the shift. Patient was able to ambulate to bathroom with stand by assist. All due meds taken, tolerated well. For discharge today, accepting facility needs latest WBC results. Kept on bed clean dry and comfortable. On fall and aspiration precautions. Call light within easy reach. Endorsed to the next shift.
--- NOTE | 2019-07-12 07:26 | NUR ---
RN OPENING NOTE PT WAS RECEIVED IN BED AT LOWEST AND LOCKED POSITION WITH SIDE RAILS UP X2, A/O X2 WITH PERIODS OF CONFUSION AND FORGETFULNESS, BREATHING EVEN AND UNLABORED ON RA WITH NO S/S OF ANY DISTRESS OR PAIN AT THIS TIME, IV IS PATENT AND INTACT, PER NIGHT LUCAS PEREZ WANTS NEW CBC REPORT WITH [facility] AND WAS INFORMED THAT TRANSPORTATION CANNOT ROUNDHOUSE SUPERVISOR PT TILL THIS AFTERNOON, SAFETY PRECAUTIONS IN PLACE, CALL LIGHT IN REACH, WILL MONITOR ACCORDINGLY
[2019-07-12 08:00] VITALS: BP 128/72
[2019-07-12] MEDS: PANTOPRAZOLE 40 MG VIAL IV SCH (08:17)
[2019-07-12 09:21] LABS: BASOPHILS % (AUTO) 0.4 % (0.0-2.0); EOSINOPHILS % (AUTO) 1.1 % (0.0-6.0); HEMATOCRIT 38 % (33-45); HEMOGLOBIN 12.1 g/dL (11.5-14.8); LYMPHOCYTES # (AUTO) 1.3 /CMM (0.8-4.8); LYMPHOCYTES % (AUTO) 20.4 % (20.0-44.0); MEAN CORPUSCULAR HGB CONC 32 g/dl (31.0-36.0); MEAN CORPUSCULAR VOLUME 86 fL (82-100); MONOCYTES # (AUTO) 0.4 /CMM (0.1-1.30); MONOCYTES % (AUTO) 5.5 % (2.0-12.0); NEUTROPHILS # (AUTO) 4.8 /CMM (1.8-8.9); NEUTROPHILS % (AUTO) 72.6 % (43.0-81.0); PLATELET COUNT (AUTO) 246 /CMM (150-450); RED BLOOD CELL COUNT(AUTO) 4.38 MIL/uL (4.0-5.2); WHITE BLOOD COUNT (AUTO) 6.6 K/uL (4.3-11.0)
--- NOTE | 2019-07-12 10:55 | NUR ---
RN NOTE REPORT GIVEN TO KAY AT [facility] AT THIS TIME
--- NOTE | 2019-07-12 12:05 | NUR ---
DISCHARGE NOTE PT WAS D/C AT THIS TIME IN MEDICALLY STABLE CONDITION TO [facility] WHERE REPORT WAS GIVEN TO KAY. EMT CREW INFORMED THAT THE PT IS GOING TO ROOM 226-B. IV AND ID BAND WERE REMOVED, ALL D/C PAPERWORK, EXITCARE, AND BELONGING LIST WERE DISCUSSED WITH THE PT BUT SHE WAS UNABLE TO SIGN DUE TO HER MENTAL STATUS; THEREFORE ANOTHER NURSE SIGNED WITH ME. SKIN WAS NOTED TO BE DRY AND INTACT. NURSE AT [facility] INFORMED THAT PT IS BEING D/C WITH PO ANTIBIOTICS AND THAT SHE DOES HAS SI. ALL NEEDS WERE ATTENDED TO DURING HER STAY.
== END 2019-07-12 12:00 | DRG 388 ==
LOC: ER 21:17 → MED 07-09 05:20
PROVIDERS: ADMIT Nurse Practitioner Acute Care; ATTEND Nurse Practitioner Acute Care
DX: K56.7 Ileus, unspecified (principal); E43 Unspecified severe protein-calorie malnutrition; R45.851 Suicidal ideations; D68.69 Other thrombophilia; E83.42 Hypomagnesemia; F03.90 Unspecified dementia, unspecified severity, without behavioral disturbance, psychotic disturbance, mood disturbance, and anxiety; J44.9 Chronic obstructive pulmonary disease, unspecified; I25.10 Atherosclerotic heart disease of native coronary artery without angina pectoris; K59.09 Other constipation; R91.1 Solitary pulmonary nodule; K44.9 Diaphragmatic hernia without obstruction or gangrene; F20.9 Schizophrenia, unspecified; Z68.25 Body mass index [BMI] 25.0-25.9, adult; K22.0 Achalasia of cardia; G89.29 Other chronic pain
CPT/HCPCS: 36415; 71045-TC; 74018; 80048-TC; 80053-TC; 80061-TC; 80076-TC; 81000-TC; 82272-TC; 83540-TC; 83605-TC; 83690-TC; 83735-TC; 84100-TC; 84443-TC; 84484-TC; 85025-TC; 85730-TC; 87040-TC; 87045-TC; 87081-TC; 89055; C9113; G0378; J2405; J7030